=== PATIENT | male | born 1950 | race Caucasian/White ===

== ENCOUNTER 2018-11-17 07:26 | Day surgery (SDC) | payer OTHER, BC ==
[2018-11-14 14:25] VITALS: BMI 23.6
[2018-11-17] MEDS ORDERED: PROPOFOL 20 ML ONE ×4 (07:41)
[2018-11-17] MEDS ORDERED: LIDOCAINE HCL/PF 2% SDV 5ML VIAL ONE (07:41)
[2018-11-17 08:04] VITALS: TEMP 98.5
[2018-11-17 10:03] VITALS: BP 137/82; PULSE 61
--- NOTE | 2018-11-20 14:18 | PATH ---
Surgical Pathology Report Patient Name: ELINA GARCIA [facility]. Rec. #: [id number] /Age/Gender: 1950 (Age: 68) / M Account: [id number] Location: PSYCHIATRIC Taken: 11/17/2018 Received: 11/17/2018 Reported: 11/20/2018 Physicians: Krish Reis M.D. Specimen(s) Received POLYP TRANSVERSE COLON Clinical History History of polyps Postoperative diagnosis: Colon polyp Final Diagnosis TRANSVERSE COLON, POLYP, BIOPSY: TUBULAR ADENOMA. Electronically Signed Sheri Jackson M.D. Gross Description Received in formalin, labeled "biopsy polyp transverse colon" is a singh, irregular portion of soft tissue measuring 0.6 cm. in greatest dimension. The specimen is submitted in toto in one cassette. /11/18/201811/18/2018
== END 2018-11-17 10:10 | disposition home or self-care (01) ==
LOC: FASU-ENDO 07:26
PROVIDERS: ATTEND Internal Medicine Gastroenterology
PROC: 0DBL8ZX Excision of Transverse Colon, Via Natural or Artificial Opening Endoscopic, Diagnostic (ICD-10-PCS; principal; 2018-11-17 09:03)
DX: Z86.010 Personal history of colon polyps (principal); D12.3 Benign neoplasm of transverse colon
CPT/HCPCS: 88305-TC

== ENCOUNTER 2023-10-09 07:32 | Day surgery (SDC) | payer OTHER, BC ==
[2023-10-02 16:06] VITALS: BMI 23.6
[2023-10-09 09:21] VITALS: TEMP 969
[2023-10-09 09:31] VITALS: BP 110/68; PULSE 74; RESP 18
== END 2023-10-09 09:57 | disposition home or self-care (01) ==
LOC: FASU-ENDO 07:32
PROVIDERS: ATTEND Internal Medicine Gastroenterology
PROC: 0DJD8ZZ Inspection of Lower Intestinal Tract, Via Natural or Artificial Opening Endoscopic (ICD-10-PCS; principal; 2023-10-09 08:56)
DX: Z12.11 Encounter for screening for malignant neoplasm of colon (principal); Z86.010 Personal history of colon polyps